=== PATIENT | male | born 1970 | race Two or more races ===

== ENCOUNTER 2021-01-07 23:44 | Inpatient (IN) | payer OTHER ==
[~2021-01-07] VITALS: Ht 177.8 cm; Wt 98.4 kg
[2021-01-08] MEDS ORDERED: ONDANSETRON HCL 4 MG/2 ML VIAL IV ONE ×2 (00:30→02:45)
[2021-01-08] MEDS ORDERED: MORPHINE SULFATE 4 MG/ML SYR/VIAL IV ONE ×2 (00:30→02:45)
[2021-01-08 00:56] LABS: Basophils # (auto) 0.1 10 ^3/uL (0-0.2); Basophils % (auto) 1.1 % (0.0-2.0); Eosinophils # (auto) 0.2 10 ^3/uL (0-0.8); Eosinophils % (auto) 1.8 % (0.0-7.0); Hematocrit 41.2 % (41.0-53.0); Hemoglobin 14.8 g/dL (13.5-17.5); Lymphocytes # (auto) 3.3 10 ^3/uL (0.4-5.4); Lymphocytes % (auto) 38.3 % (10.0-50.0); Mean Corpuscular Hemoglobin 32.5 pg (28.0-32.0); Mean Corpuscular Volume 90.3 fL (80.0-100.0); Monocytes # (auto) 0.6 10 ^3/uL (0-1.3); Monocytes % (auto) 6.8 % (0.0-12.0); Neutrophils # (auto) 4.5 10 ^3/uL (1.6-8.6); Nucleated Red Blood Cells % 0.2 %; Red Blood Cells 4.56 10^6/uL (4.5-5.90); Red Cell Distribution Width 14.3 % (11.8-14.3); White Blood Cell 8.6 10^3/uL (4.4-10.8)
[2021-01-08 01:04] LABS: Albumin 3.2 g/dL (3.4-5.0); Calcium 7.3 mg/dL (8.5-10.1); Magnesium 2.1 mg/dL (1.6-2.6); Potassium 3.3 mmol/L (3.5-5.1)
[2021-01-08 01:06] LABS: BUN/Creatinine Ratio 16.2
[2021-01-08 01:11] LABS: Bilirubin, Total 0.2 mg/dL (0.2-1.0); Total Protein 6.1 g/dL (6.4-8.2)
[2021-01-08 06:09] LABS: Urine Bacteria NONE SEEN /hpf (None Seen); Urine Blood Negative /uL (Negative); Urine Specific Gravity 1.035 (1.001-1.035); Urine WBC 1 /hpf (0 - 3)
[2021-01-08] MEDS ORDERED: MORPHINE SULF INJ 2 MG/ML SYRINGE 1ML IV PRN (09:00)
[2021-01-08] MEDS ORDERED: DOCUSATE SOD 100 MG CAP PO PRN (09:00)
[2021-01-08] MEDS ORDERED: NITROGLYCERIN 0.4 MG SL TAB SL PRN (09:00)
[2021-01-08] MEDS ORDERED: ONDANSETRON HCL 4 MG/2 ML VIAL IV PRN (09:00)
[2021-01-08] MEDS: ENOXAPARIN SOD 40 MG/0.4 ML SYRINGE SC SCH (10:44)
[2021-01-08 13:00] VITALS: BP 120/73
[2021-01-08 17:00] VITALS: BP 109/64
[2021-01-08 22:00] VITALS: BP 129/75
[2021-01-09] MEDS: TEMAZEPAM 15 MG CAP PO PRN ×2 (02:39→20:45)
[2021-01-09 05:00] VITALS: BP 135/74
[2021-01-09 07:01] LABS: Basophils # (auto) 0.1 10 ^3/uL (0-0.2); Basophils % (auto) 0.9 % (0.0-2.0); Eosinophils # (auto) 0.1 10 ^3/uL (0-0.8); Eosinophils % (auto) 0.8 % (0.0-7.0); Hematocrit 42.7 % (41.0-53.0); Hemoglobin 14.8 g/dL (13.5-17.5); Lymphocytes % (auto) 21.9 % (10.0-50.0); Mean Corpuscular Hemoglobin 31.6 pg (28.0-32.0); Mean Corpuscular Hgb Conc. 34.7 g/dL (32.0-36.0); Mean Corpuscular Volume 91.1 fL (80.0-100.0); Monocytes # (auto) 0.6 10 ^3/uL (0-1.3); Monocytes % (auto) 6.4 % (0.0-12.0); Neutrophils # (auto) 6.5 10 ^3/uL (1.6-8.6); Nucleated Red Blood Cells % 0.1 %; Red Blood Cells 4.68 10^6/uL (4.5-5.90); White Blood Cell 9.3 10^3/uL (4.4-10.8)
[2021-01-09 07:20] LABS: Albumin 3.4 g/dL (3.4-5.0); Calcium 8.1 mg/dL (8.5-10.1); Potassium 3.6 mmol/L (3.5-5.1)
[2021-01-09 07:23] LABS: BUN/Creatinine Ratio 7.3; Bilirubin, Total 0.5 mg/dL (0.2-1.0); Total Protein 6.5 g/dL (6.4-8.2)
[2021-01-09] MEDS: HYDROcodone-ACET 5/325MG TAB PO PRN ×3 (08:45→21:24)
[2021-01-09 09:00] VITALS: BP 125/75
[2021-01-09] MEDS: SUCRALFATE 1 GM/10 ML ORAL SUSP PO SCH ×3 (12:34→23:54)
[2021-01-09] MEDS: PANTOPRAZOLE 40 MG TAB PO SCH ×2 (12:34→23:53)
[2021-01-09] MEDS: ENOXAPARIN SOD 40 MG/0.4 ML SYRINGE SC SCH (12:40)
[2021-01-09 13:00] VITALS: BP 126/86
[2021-01-09 17:00] VITALS: BP 131/80
[2021-01-09 17:28] LABS: Amphetamine Screen, Urine NEGATIVE (NEGATIVE); Barbiturate Scree,Urine NEGATIVE (NEGATIVE); Benzodiazephine Screen, Urine NEGATIVE (NEGATIVE); Cannabinoid Screen, Urine NEGATIVE (NEGATIVE); Cocaine Screen, Urine NEGATIVE (NEGATIVE); Opiate Scree,Urine NEGATIVE (NEGATIVE); Phencyclidine Screen, Urine NEGATIVE (NEGATIVE)
[2021-01-09] MEDS: MORPHINE SULFATE 4 MG/ML SYR/VIAL IV PRN (19:43)
[2021-01-09 22:00] VITALS: BP 124/75
[2021-01-09] MEDS: ENOXAPARIN SOD 100 MG/1 ML SYRINGE SC SCH (23:54)
[2021-01-10] MEDS: HYDROcodone-ACET 5/325MG TAB PO PRN ×3 (01:12→16:47)
[2021-01-10] MEDS: MORPHINE SULFATE 4 MG/ML SYR/VIAL IV PRN ×2 (03:00→21:54)
[2021-01-10 05:00] VITALS: BP 128/83
[2021-01-10] MEDS: SUCRALFATE 1 GM/10 ML ORAL SUSP PO SCH ×4 (06:52→22:38)
[2021-01-10 09:00] VITALS: BP 127/80
[2021-01-10] MEDS: PANTOPRAZOLE 40 MG TAB PO SCH ×2 (10:04→22:38)
[2021-01-10] MEDS: ENOXAPARIN SOD 100 MG/1 ML SYRINGE SC SCH ×2 (10:05→22:39)
[2021-01-10 13:00] VITALS: BP 138/70
[2021-01-10 17:00] VITALS: BP 134/75
[2021-01-10 22:00] VITALS: BP 106/59
[2021-01-10] MEDS: TEMAZEPAM 15 MG CAP PO PRN (22:38)
[2021-01-11] MEDS: HYDROcodone-ACET 5/325MG TAB PO PRN (01:19)
[2021-01-11] MEDS: MORPHINE SULFATE 4 MG/ML SYR/VIAL IV PRN (04:39)
[2021-01-11 05:00] VITALS: BP 119/50
[2021-01-11 05:49] LABS: Basophils # (auto) 0.1 10 ^3/uL (0-0.2); Basophils % (auto) 0.8 % (0.0-2.0); Eosinophils # (auto) 0.1 10 ^3/uL (0-0.8); Eosinophils % (auto) 1.2 % (0.0-7.0); Hemoglobin 14.6 g/dL (13.5-17.5); Lymphocytes # (auto) 2.4 10 ^3/uL (0.4-5.4); Lymphocytes % (auto) 30.7 % (10.0-50.0); Mean Corpuscular Hemoglobin 31.8 pg (28.0-32.0); Mean Corpuscular Hgb Conc. 35.5 g/dL (32.0-36.0); Mean Corpuscular Volume 89.7 fL (80.0-100.0); Monocytes # (auto) 0.6 10 ^3/uL (0-1.3); Monocytes % (auto) 7.4 % (0.0-12.0); Neutrophils # (auto) 4.7 10 ^3/uL (1.6-8.6); Neutrophils % (auto) 59.9 % (37.0-80.0); Nucleated Red Blood Cells % 0.1 %; Red Blood Cells 4.58 10^6/uL (4.5-5.90); Red Cell Distribution Width 14.1 % (11.8-14.3); White Blood Cell 7.8 10^3/uL (4.4-10.8)
[2021-01-11 06:08] LABS: Albumin 3.4 g/dL (3.4-5.0); Calcium 8.3 mg/dL (8.5-10.1); Magnesium 2.3 mg/dL (1.6-2.6); Potassium 3.9 mmol/L (3.5-5.1)
[2021-01-11 06:11] LABS: BUN/Creatinine Ratio 15.4; Bilirubin, Total 0.4 mg/dL (0.2-1.0); Total Protein 6.3 g/dL (6.4-8.2)
[2021-01-11] MEDS: SUCRALFATE 1 GM/10 ML ORAL SUSP PO SCH ×4 (06:15→21:26)
[2021-01-11] MEDS ORDERED: ADENOSINE 84 MG in GIVE UN-DILUTED 0 ML IV STA (07:30)
[2021-01-11 07:31] LABS: INR 0.98 (0.9-1.15); Partial Thromboplastin Time 32.4 sec (23.0-31.2)
[2021-01-11 08:55] VITALS: BP 138/77
[2021-01-11 09:00] VITALS: BP 105/61
[2021-01-11] MEDS: PANTOPRAZOLE 40 MG TAB PO SCH ×2 (10:27→21:26)
[2021-01-11] MEDS: ENOXAPARIN SOD 100 MG/1 ML SYRINGE SC SCH ×2 (10:27→21:27)
[2021-01-11 13:00] VITALS: BP 137/84
[2021-01-11] MEDS ORDERED: ALPRAZolam 0.5 MG TAB PO PRN (13:00)
[2021-01-11 17:00] VITALS: BP 127/75
[2021-01-11] MEDS: ZOLPIDEM TARTRATE 5 MG TAB PO PRN (21:26)
[2021-01-11 21:33] VITALS: BP 166/74
[2021-01-12 05:30] VITALS: BP 132/55
[2021-01-12 09:00] VITALS: BP 123/67
[2021-01-12] MEDS: ENOXAPARIN SOD 100 MG/1 ML SYRINGE SC SCH ×2 (09:46→22:09)
[2021-01-12] MEDS: PANTOPRAZOLE 40 MG TAB PO SCH ×2 (09:46→22:09)
[2021-01-12] MEDS: SUCRALFATE 1 GM/10 ML ORAL SUSP PO SCH ×3 (09:46→22:09)
[2021-01-12 13:00] VITALS: BP 111/66
[2021-01-12 17:00] VITALS: BP 122/74
[2021-01-12 22:00] VITALS: BP 145/93
[2021-01-12] MEDS: ZOLPIDEM TARTRATE 5 MG TAB PO PRN (22:29)
[2021-01-13 05:00] VITALS: BP 101/62
[2021-01-13] MEDS: SUCRALFATE 1 GM/10 ML ORAL SUSP PO SCH ×4 (06:35→20:52)
[2021-01-13 09:00] VITALS: BP 120/68
[2021-01-13] MEDS: PANTOPRAZOLE 40 MG TAB PO SCH ×2 (10:31→20:52)
[2021-01-13] MEDS: ENOXAPARIN SOD 100 MG/1 ML SYRINGE SC SCH ×2 (10:31→20:53)
[2021-01-13 11:55] LABS: Basophils # (auto) 0.1 10 ^3/uL (0-0.2); Basophils % (auto) 0.7 % (0.0-2.0); Eosinophils # (auto) 0.1 10 ^3/uL (0-0.8); Hematocrit 44.6 % (41.0-53.0); Hemoglobin 15.7 g/dL (13.5-17.5); Lymphocytes % (auto) 22.3 % (10.0-50.0); Mean Corpuscular Hemoglobin 31.9 pg (28.0-32.0); Mean Corpuscular Hgb Conc. 35.2 g/dL (32.0-36.0); Mean Corpuscular Volume 90.8 fL (80.0-100.0); Monocytes # (auto) 0.7 10 ^3/uL (0-1.3); Monocytes % (auto) 7.7 % (0.0-12.0); Neutrophils # (auto) 6.1 10 ^3/uL (1.6-8.6); Neutrophils % (auto) 68.3 % (37.0-80.0); Nucleated Red Blood Cells % 0.2 %; Red Blood Cells 4.91 10^6/uL (4.5-5.90); White Blood Cell 8.9 10^3/uL (4.4-10.8)
[2021-01-13 12:14] LABS: Albumin 3.4 g/dL (3.4-5.0); Calcium 8.7 mg/dL (8.5-10.1); Potassium 3.9 mmol/L (3.5-5.1)
[2021-01-13 12:17] LABS: BUN/Creatinine Ratio 15.9; Bilirubin, Total 0.4 mg/dL (0.2-1.0); Total Protein 6.8 g/dL (6.4-8.2)
[2021-01-13 13:00] VITALS: BP 127/79
[2021-01-13 17:00] VITALS: BP 122/76
[2021-01-13] MEDS: NYSTATIN (MOUTH-THROAT) 500,000 UNITS/5 ML SUSP MT SCH ×2 (17:07→20:52)
[2021-01-13] MEDS: ZOLPIDEM TARTRATE 5 MG TAB PO PRN (20:53)
[2021-01-13 22:02] VITALS: BP 107/73
[2021-01-14 05:09] VITALS: BP 105/56
[2021-01-14] MEDS: NYSTATIN (MOUTH-THROAT) 500,000 UNITS/5 ML SUSP MT SCH ×2 (06:00→12:00)
[2021-01-14] MEDS: SUCRALFATE 1 GM/10 ML ORAL SUSP PO SCH ×2 (06:04→11:30)
[2021-01-14 09:03] VITALS: BP 96/59
[2021-01-14] MEDS: ENOXAPARIN SOD 100 MG/1 ML SYRINGE SC SCH (10:00)
[2021-01-14] MEDS: PANTOPRAZOLE 40 MG TAB PO SCH (10:00)
[2021-01-14] MEDS ORDERED: SODIUM CHLORIDE LOCK 10 ML ONE (12:07)
[2021-01-14] MEDS ORDERED: diphenhdrAMINE HCL 50 MG/1 ML VL ONE (12:07)
[2021-01-14] MEDS ORDERED: LIDOCAINE VISCOUS 2% 15ML UD ONE (12:07)
[2021-01-14] MEDS: MIDAZOLAM HCL 5 MG/ML-1ML VIAL ONE ×2 (12:21→12:24)
[2021-01-14] MEDS: fentaNYL CITRATE 100 MCG/2 ML VL ONE ×2 (12:21→12:24)
[2021-01-14 13:12] VITALS: BP 111/80
[2021-01-14 14:24] VITALS: BP 111/80
== END 2021-01-14 15:15 | disposition home or self-care (01) | DRG 392 ==
LOC: ER 23:44 → EDBD 23:44 → TELE 01-08 08:52 → TELE-EAST 01-08 10:11
PROVIDERS: ADMIT Nurse Practitioner; ATTEND Nurse Practitioner
PROC: 4A02XM4 Measurement of Cardiac Total Activity, External Approach (ICD-10-PCS; principal; 2021-01-11)
PROC: 0DB68ZX Excision of Stomach, Via Natural or Artificial Opening Endoscopic, Diagnostic (ICD-10-PCS; 2021-01-14)
DX: K29.70 Gastritis, unspecified, without bleeding (principal); I20.0 Unstable angina; R00.1 Bradycardia, unspecified; I10 Essential (primary) hypertension; F17.200 Nicotine dependence, unspecified, uncomplicated; Z20.822 Contact with and (suspected) exposure to COVID-19; E87.6 Hypokalemia; E66.9 Obesity, unspecified; Z68.31 Body mass index [BMI] 31.0-31.9, adult; Z90.49 Acquired absence of other specified parts of digestive tract
CPT/HCPCS: 36415; 43239; 71045; 74176; 78452; 80053; 80307; 81001; 82150; 83690; 83735; 84484; 85025; 85610; 85730; 86850; 86900; 86901; 87426; 93005; 93017; 93306; 96374; 96375; 96376; G0378; J0153; J2250; J2405

== ENCOUNTER 2021-04-06 20:42 | Emergency (ER) | payer OTHER ==
[~2021-04-06] VITALS: Ht 175.3 cm; Wt 95.3 kg
[2021-04-06 20:42] VITALS: BP 136/81
[2021-04-06 22:44] LABS: Basophils # (auto) 0.2 10 ^3/uL (0-0.2); Basophils % (auto) 2.1 % (0.0-2.0); Eosinophils # (auto) 0.1 10 ^3/uL (0-0.8); Eosinophils % (auto) 1.8 % (0.0-7.0); Hematocrit 45.4 % (41.0-53.0); Mean Corpuscular Hemoglobin 32.2 pg (28.0-32.0); Mean Corpuscular Hgb Conc. 35.2 g/dL (32.0-36.0); Mean Corpuscular Volume 91.5 fL (80.0-100.0); Monocytes # (auto) 0.8 10 ^3/uL (0-1.3); Neutrophils # (auto) 5.1 10 ^3/uL (1.6-8.6); Neutrophils % (auto) 62.1 % (37.0-80.0); Nucleated Red Blood Cells % 0.1 %; Red Blood Cells 4.96 10^6/uL (4.5-5.90); Red Cell Distribution Width 14.1 % (11.8-14.3); White Blood Cell 8.3 10^3/uL (4.4-10.8)
[2021-04-06 22:55] LABS: Albumin 3.6 g/dL (3.4-5.0); Calcium 8.2 mg/dL (8.5-10.1); Magnesium 2.4 mg/dL (1.6-2.6)
[2021-04-06 23:02] LABS: Bilirubin, Total 0.3 mg/dL (0.2-1.0)
[2021-04-06 23:18] LABS: BUN/Creatinine Ratio 14.7
== END 2021-04-07 01:35 | disposition left against medical advice (07) ==
LOC: ER 20:43
DX: R06.02 Shortness of breath (principal); R07.89 Other chest pain; Z53.21 Procedure and treatment not carried out due to patient leaving prior to being seen by health care provider
CPT/HCPCS: 36415; 71045; 80053; 83735; 84484; 85025; 93005

== ENCOUNTER 2021-05-19 23:05 | Emergency (ER) | payer OTHER ==
[~2021-05-19] VITALS: Ht 175.3 cm; Wt 90.7 kg
[2021-05-20] MEDS ORDERED: ACETAMINOPHEN 325 MG TAB PO ONE
[2021-05-20] MEDS ORDERED: KETOROLAC TROMETH 60MG/2ML VIAL IM ONE
[2021-05-20 01:31] LABS: Albumin 3.2 g/dL (3.4-5.0); Calcium 7.9 mg/dL (8.5-10.1); Potassium 3.7 mmol/L (3.5-5.1)
[2021-05-20 01:37] LABS: Basophils # (auto) 0 10 ^3/uL (0-0.2); Basophils % (auto) 0.8 % (0.0-2.0); Bilirubin, Total 0.4 mg/dL (0.2-1.0); Eosinophils # (auto) 0 10 ^3/uL (0-0.8); Eosinophils % (auto) 0.4 % (0.0-7.0); Hematocrit 45.9 % (41.0-53.0); Lymphocytes # (auto) 1.6 10 ^3/uL (0.4-5.4); Lymphocytes % (auto) 26.1 % (10.0-50.0); Mean Corpuscular Hemoglobin 31.8 pg (28.0-32.0); Mean Corpuscular Hgb Conc. 34.9 g/dL (32.0-36.0); Mean Corpuscular Volume 90.9 fL (80.0-100.0); Monocytes # (auto) 0.6 10 ^3/uL (0-1.3); Monocytes % (auto) 9.6 % (0.0-12.0); Neutrophils # (auto) 3.9 10 ^3/uL (1.6-8.6); Neutrophils % (auto) 63.1 % (37.0-80.0); Nucleated Red Blood Cells % 0.2 %; Red Blood Cells 5.05 10^6/uL (4.5-5.90); Red Cell Distribution Width 13.8 % (11.8-14.3); Total Protein 7.1 g/dL (6.4-8.2); White Blood Cell 6.1 10^3/uL (4.4-10.8)
[2021-05-20 02:18] LABS: Urine Bacteria NONE SEEN /hpf (None Seen); Urine Blood Negative /uL (Negative); Urine Mucus FEW (None Seen); Urine Specific Gravity 1.038 (1.001-1.035); Urine WBC 1 /hpf (0 - 3)
[2021-05-20 03:02] VITALS: BP 127/81
== END 2021-05-20 06:12 | disposition left against medical advice (07) ==
LOC: ER 23:05
DX: R07.89 Other chest pain (principal); J06.9 Acute upper respiratory infection, unspecified; F17.210 Nicotine dependence, cigarettes, uncomplicated; I10 Essential (primary) hypertension; Z90.49 Acquired absence of other specified parts of digestive tract
CPT/HCPCS: 36415; 71045; 80053; 81001; 83880; 84484; 85025; 93005; 96372; 99285; J1885

== ENCOUNTER 2022-11-21 13:02 | Emergency (ER) | payer MEDICAID, OTHER ==
[~2022-11-21] VITALS: Ht 170.2 cm; Wt 94.7 kg
[2022-11-21] MEDS ORDERED: SODIUM CHLORIDE 0.9% 1,000 ML IV ONE (13:30)
[2022-11-21 13:52] LABS: Basophils # (auto) 0 10 ^3/uL (0-0.2); Basophils % (auto) 0.4 % (0.0-2.0); Eosinophils # (auto) 0.1 10 ^3/uL (0-0.8); Eosinophils % (auto) 1.1 % (0.0-7.0); Hematocrit 48.9 % (41.0-53.0); Hemoglobin 16.7 g/dL (13.5-17.5); Lymphocytes # (auto) 1.6 10 ^3/uL (0.4-5.4); Lymphocytes % (auto) 20.3 % (10.0-50.0); Mean Corpuscular Hemoglobin 31.9 pg (28.0-32.0); Mean Corpuscular Hgb Conc. 34.2 g/dL (32.0-36.0); Mean Corpuscular Volume 93.1 fL (80.0-100.0); Monocytes # (auto) 0.7 10 ^3/uL (0-1.3); Monocytes % (auto) 8.7 % (0.0-12.0); Neutrophils # (auto) 5.6 10 ^3/uL (1.6-8.6); Neutrophils % (auto) 69.5 % (37.0-80.0); Nucleated Red Blood Cells % 0.1 %; Red Blood Cells 5.25 10^6/uL (4.5-5.90); Red Cell Distribution Width 13.9 % (11.8-14.3); White Blood Cell 8.1 10^3/uL (4.4-10.8)
[2022-11-21 14:11] LABS: Albumin 3.8 g/dL (3.4-5.0); Calcium 8.1 mg/dL (8.5-10.1); Potassium 4.4 mmol/L (3.5-5.1)
[2022-11-21 14:14] LABS: BUN/Creatinine Ratio 14.6 (10.0-20.0); Bilirubin, Total 0.3 mg/dL (0.2-1.0); Total Protein 6.5 g/dL (6.4-8.2)
[2022-11-21] MEDS ORDERED: MECL1TAB42 PO (15:59)
[2022-11-21 16:04] LABS: Urine Bacteria NONE SEEN /hpf (None Seen); Urine Blood Negative /uL (Negative); Urine Mucus FEW (None Seen); Urine Specific Gravity 1.028 (1.001-1.035); Urine WBC 1 /hpf (0 - 3)
[2022-11-21 17:00] VITALS: BP 103/71
[2022-11-22] MEDS ORDERED: METR500T PO (07:29)
[2022-11-22] MEDS ORDERED: ONDA-144 PO (07:29)
[2022-11-22] MEDS ORDERED: CEPH-510 PO (07:29)
== END 2022-11-21 18:39 | disposition home or self-care (01) ==
LOC: ER 13:02
DX: K52.9 Noninfective gastroenteritis and colitis, unspecified (principal); R42 Dizziness and giddiness; I11.0 Hypertensive heart disease with heart failure; I50.9 Heart failure, unspecified; E11.9 Type 2 diabetes mellitus without complications; E78.5 Hyperlipidemia, unspecified; F17.210 Nicotine dependence, cigarettes, uncomplicated; Z90.49 Acquired absence of other specified parts of digestive tract
CPT/HCPCS: 36415; 70450; 74176; 80053; 81001; 82962; 84484; 85025; 93005; 96360; 99284; J7030

== ENCOUNTER 2024-01-09 20:13 | Emergency (ER) | payer MEDICAID ==
[~2024-01-09] VITALS: Ht 177.8 cm; Wt 93.7 kg
[~2024-01-09 20:13] MED LIST: CEPH-510 PO; MECL1TAB42 PO; METR500T PO; ONDA-144 PO
[2024-01-09 20:46] LABS: Urine Bacteria None Seen /hpf (None Seen)
[2024-01-09 21:01] LABS: Urine Blood TRACE /uL (Negative); Urine Clarity Clear (Clear); Urine Color Light-Yellow (Yellow); Urine Protein, UAD Negative (Negative); Urine Specific Gravity 1.023 (1.001-1.035); Urine Urobilinogen Normal (Negative); Urine WBC 1 /hpf (0 - 3)
[2024-01-09 21:27] LABS: Basophils # (auto) 0.1 10 ^3/uL (0-0.2); Basophils % (auto) 0.7 % (0.0-2.0); Eosinophils # (auto) 0 10 ^3/uL (0-0.8); Eosinophils % (auto) 0.1 % (0.0-7.0); Hematocrit 42.7 % (41.0-53.0); Hemoglobin 15.2 g/dL (13.5-17.5); Lymphocytes # (auto) 1.7 10 ^3/uL (0.4-5.4); Lymphocytes % (auto) 19.4 % (10.0-50.0); Mean Corpuscular Hemoglobin 32.9 pg (28.0-32.0); Mean Corpuscular Hgb Conc. 35.5 g/dL (32.0-36.0); Mean Corpuscular Volume 92.6 fL (80.0-100.0); Monocytes # (auto) 0.6 10 ^3/uL (0-1.3); Monocytes % (auto) 6.8 % (0.0-12.0); Neutrophils # (auto) 6.5 10 ^3/uL (1.6-8.6); Nucleated Red Blood Cells % 0.3 %; Red Blood Cells 4.61 10^6/uL (4.5-5.90); Red Cell Distribution Width 13.7 % (11.8-14.3)
[2024-01-09 21:50] LABS: Alanine Aminotransferase 14 U/L (7-40); Albumin 4.1 g/dL (3.2-4.8); Alkaline Phosphatase 84 U/L (46-116); Anion Gap 11 (5-15); BUN/Creatinine Ratio 10.1 (10.0-20.0); Bilirubin, Total 0.2 mg/dL (0.2-1.0); Blood Urea Nitrogen 9 mg/dL (9-23); Calcium 9.2 mg/dL (8.7-10.4); Carbon Dioxide 21 mmol/L (20-30); Chloride 105 mmol/L (98-107); Glucose 101 mg/dL (74-106); Potassium 3.6 mmol/L (3.5-5.1); Sodium 137 mmol/L (136-145); Total Protein 6.2 g/dL (5.7-8.2)
[2024-01-09] MEDS ORDERED: MORPHINE SULFATE 4 MG/ML SYR/VIAL IM ONE (22:15)
[2024-01-09] MEDS ORDERED: ONDANSETRON HCL 4 MG/2 ML VIAL IM ONE (22:15)
[2024-01-09 22:29] LABS: Aspartate Aminotransferase 12 U/L (13-40)
[2024-01-09] MEDS ORDERED: CIPR-173 PO (22:53)
[2024-01-09] MEDS ORDERED: MET500T PO (22:53)
[2024-01-10 00:19] VITALS: BP 138/93; PULSE 69; RESP 18; TEMP 98.4; O2SAT 96
== END 2024-01-10 00:24 | disposition home or self-care (01) ==
LOC: ER 20:13
DX: K52.9 Noninfective gastroenteritis and colitis, unspecified (principal); I11.0 Hypertensive heart disease with heart failure; E11.9 Type 2 diabetes mellitus without complications; E78.5 Hyperlipidemia, unspecified; F17.210 Nicotine dependence, cigarettes, uncomplicated; Z79.899 Other long term (current) drug therapy
CPT/HCPCS: 36415; 74176; 80053; 81001; 82962; 83605; 85025

== ENCOUNTER 2024-01-30 13:12 | Emergency (ER) | payer MEDICAID ==
[~2024-01-30] VITALS: Ht 177.8 cm; Wt 91.0 kg
[~2024-01-30 13:12] MED LIST changes: +CIPR-173 PO; +MET500T PO
[2024-01-30 13:54] LABS: Basophils # (auto) 0 10 ^3/uL (0-0.2); Basophils % (auto) 0.4 % (0.0-2.0); Eosinophils # (auto) 0 10 ^3/uL (0-0.8); Eosinophils % (auto) 0.4 % (0.0-7.0); Lymphocytes % (auto) 7.8 % (10.0-50.0); Mean Corpuscular Hemoglobin 31.6 pg (28.0-32.0); Mean Corpuscular Volume 92.7 fL (80.0-100.0); Monocytes # (auto) 0.8 10 ^3/uL (0-1.3); Monocytes % (auto) 6.5 % (0.0-12.0); Neutrophils # (auto) 10.9 10 ^3/uL (1.6-8.6); Neutrophils % (auto) 84.9 % (37.0-80.0); Nucleated Red Blood Cells % 0.2 %; Red Blood Cells 5.07 10^6/uL (4.5-5.90); Red Cell Distribution Width 14.1 % (11.8-14.3); White Blood Cell 12.9 10^3/uL (4.4-10.8)
[2024-01-30 14:17] LABS: Alanine Aminotransferase 24 U/L (7-40); Albumin 4.2 g/dL (3.2-4.8); Alkaline Phosphatase 88 U/L (46-116); Anion Gap 6 (5-15); Aspartate Aminotransferase 15 U/L (13-40); BUN/Creatinine Ratio 16.8 (10.0-20.0); Blood Urea Nitrogen 16 mg/dL (9-23); Calcium 9.4 mg/dL (8.7-10.4); Carbon Dioxide 27 mmol/L (20-30); Chloride 108 mmol/L (98-107); Glucose 115 mg/dL (74-106); Lipase 24 U/L (12-53); Potassium 4.2 mmol/L (3.5-5.1); Sodium 141 mmol/L (136-145)
[2024-01-30 14:18] LABS: Bilirubin, Total 0.5 mg/dL (0.2-1.0); Total Protein 6.7 g/dL (5.7-8.2)
[2024-01-30] MEDS: LIDOCAINE VISCOUS 2% 15ML UD PO ONE (15:07)
[2024-01-30] MEDS: MAALOX PLUS or MAALOX 30 ML PO ONE (15:07)
[2024-01-30] MEDS: ONDANSETRON HCL 4 MG/2 ML VIAL IV ONE (15:07)
[2024-01-30] MEDS: SODIUM CHLORIDE 0.9% 1,000 ML IVB ONE (15:11)
[2024-01-30] MEDS: HYDROmorphone HCL 2 MG/ML VL/or syr IV ONE (15:11)
[2024-01-30 15:30] VITALS: PULSE 78; RESP 20; O2SAT 96
[2024-01-30] MEDS ORDERED: HYDR-4902 PO (15:30)
[2024-01-30] MEDS ORDERED: METR-344 PO (15:30)
[2024-01-30] MEDS ORDERED: CIPR-173 PO (15:30)
[2024-01-30 16:20] VITALS: BP 129/58; PULSE 90; RESP 18; TEMP 98.1; O2SAT 96
== END 2024-01-30 16:27 | disposition home or self-care (01) ==
LOC: EDBD 13:12 → ER 13:14
DX: K52.9 Noninfective gastroenteritis and colitis, unspecified (principal); I11.0 Hypertensive heart disease with heart failure; I50.9 Heart failure, unspecified; E11.9 Type 2 diabetes mellitus without complications; E78.5 Hyperlipidemia, unspecified; F17.210 Nicotine dependence, cigarettes, uncomplicated; Z90.49 Acquired absence of other specified parts of digestive tract
CPT/HCPCS: 36415; 74176; 80053; 83605; 83690; 84484; 85025; 93005; 96374; 96375; 99285; J1170; J2405; J7030